=== PATIENT | female | born 1970 | race Caucasian/White ===

== ENCOUNTER 2020-03-18 01:29 | Emergency (ER) | payer BC ==
[2020-03-18] MEDS ORDERED: NORMAL SALINE 1000 ML 1,000 ML IV ONE (04:25)
[2020-03-18] MEDS ORDERED: KETOROLAC TROMETHAMINE INJ/PF 30 MG/1 ML SDV IV ONE (04:26)
[2020-03-18] MEDS ORDERED: HYDROMORPHONE HCL INJ/PF 2 MG/ML AMPULE IV ONE (04:26)
--- NOTE | 2020-03-18 04:32 | ER Document Report ---
ED GI/ - General Chief Complaint: Flank Pain Stated Complaint: SEVERE BACK PAIN, ABDOMINAL PAIN Time Seen by Provider: 03/18/20 04:10 Notes: Patient is a 50-year-old female who comes emergency department for chief complaint of left flank pain radiating into her abdomen, urinary discomfort. She states symptoms started suddenly just prior to arrival and woke her up from her sleep. She states she took Flomax and 5 mg of Percocet, symptoms did not improve whatsoever so she came in for evaluation. She states that she passes kidney stones very frequently, she states normally she just manages them at home, she states she has always passed them and has never required a stent or stone retrieval. She states she follows with [facility]. She denies vomiting, fever, hematuria. She denies any other complaints. - Related Data Allergies/Adverse Reactions: acetaminophen [From Vicodin] Allergy (Verified 03/18/20 02:14) alcohol Allergy (Verified 03/18/20 02:14) ceftriaxone [From Rocephin] Allergy (Verified 03/18/20 02:14) hydrocodone [From Vicodin] Allergy (Verified 03/18/20 02:14) morphine Allergy (Verified 03/18/20 02:14) Past Medical History - General Information source: Patient - Social History Smoking Status: Current Every Day Smoker Frequency of alcohol use: None Drug Abuse: None Lives with: Family Family History: Reviewed & Not Pertinent Renal/ Medical History: Reports: Hx Kidney Stones Musculoskeletal Medical History: Reports Hx Fibromyalgia - Immunizations Immunizations up to date: Yes Hx Diphtheria, Pertussis, Tetanus Vaccination: Yes Review of Systems - Review of Systems Constitutional: No symptoms reported EENT: No symptoms reported Cardiovascular: No symptoms reported Respiratory: No symptoms reported Gastrointestinal: No symptoms reported, See HPI Genitourinary: See HPI Female Genitourinary: No symptoms reported Musculoskeletal: No symptoms reported Skin: No symptoms reported Hematologic/Lymphatic: No symptoms reported Neurological/Psychological: No symptoms reported Physical Exam - Vital signs Vitals: Temp Pulse Resp BP Pulse Ox 97.5 F 74 22 H 149/83 H 98 03/18/20 01:38 03/18/20 01:38 03/18/20 01:38 03/18/20 01:38 03/18/20 01:38 - Notes Notes: GENERAL: Alert, interacts well. No acute distress. HEAD: Normocephalic, atraumatic. EYES: Pupils equal, round, and reactive to light. Extraocular movements intact. ENT: Oral mucosa moist, tongue midline. Oropharynx unremarkable. Airway patent. NECK: Full range of motion. Supple. Trachea midline. No lymphadenopathy. LUNGS: Clear to auscultation bilaterally, no wheezes, rales, or rhonchi. No respiratory distress. Non-tender chest wall. HEART: Regular rate and rhythm. No murmur ABDOMEN: Soft, non-tender. Non-distended. EXTREMITIES: Moves all 4 extremities spontaneously. No edema, normal radial and dorsalis pedis pulses bilaterally. No cyanosis. BACK: no cervical, thoracic, lumbar midline tenderness. No saddle anesthesia, normal distal neurovascular exam. Moves all extremities in full range of motion. NEUROLOGICAL: Alert and oriented x3. Normal speech. Cranial nerves II through XII grossly intact. Strength 5/5 in all extremities. PSYCH: Normal affect, normal mood. SKIN: Warm, dry, normal turgor. No rashes or lesions noted. Course - Re-evaluation Re-evalutation: Patient is calm, well-appearing, talkative, alert, no signs of distress. Terrie ma based on her reported symptoms and history I do suspect passing ureterolithiasis. Soft benign abdomen, unremarkable vital signs, no fever. CBC shows leukocytosis with elevation of neutrophils but no bandemia, unremarkable otherwise. Chemistry nonspecific. Urine shows some contamination, some hematuria, a few white blood cells, nonspecific. This was cultured. I did discuss with patient because of the nonspecific urine and possible CAT scan but on reevaluation symptoms have completely resolved with medications and patient is requesting to leave instead. I have a low suspicion of infection based on the urine and the small amount of time since symptom onset. Patient will be provided with medications to assist her in addition to her medications at home, she states she has good urology follow-up with [facility] Mccrack[facility], I discussed return precautions, patient states appreciation and agreement. Stable and well- appearing at time of discharge. - Vital Signs Vital signs: Temp Pulse Resp BP Pulse Ox 97.5 F 77 20 137/80 H 97 03/18/20 06:32 03/18/20 06:32 03/18/20 06:32 03/18/20 06:32 03/18/20 06:32 - Laboratory Result Diagrams: 03/18/20 04:17 03/18/20 04:17 Laboratory results interpreted by me: 03/18/20 03/18/20 04:17 04:17 WBC 15.4 H RDW 14.1 H Absolute Neuts (auto) 12.1 H Seg Neutrophils % 78.4 H Urine Blood MODERATE H Urine Bilirubin SMALL H Ur Leukocyte Esterase TRACE H Discharge - Discharge Clinical Impression: Left flank pain, Urinary symptom or sign Condition: Stable Disposition: HOME, SELF-CARE Additional Instructions: Your urine does show some blood and calcium oxalate crystals. Based on this and your evaluation I suspect your passing a kidney stone. Drink plenty of fluids, continue your Flomax, take Percocet if needed for pain, take Phenergan if needed for nausea, you can take Toradol for supplemental pain control if needed (take with food and only if needed). Follow-up closely with urology for additional management. Return for any concerning symptoms including severe worsening pain, fever/chills, uncontrolled vomiting, or any other concerning symptoms. Prescriptions: Ketorolac Tromethamine [Toradol 10 mg Tablet] 10 mg PO Q8HP PRN #12 tablet PRN Reason: Promethazine HCl [Phenergan 25 mg Tablet] 25 mg PO Q6H PRN #20 tablet PRN Reason:
[2020-03-18 04:50] LABS: ABSOLUTE EOSINOPHILS # (AUTO) 0.2 10^3/uL (0.0-0.6); ABSOLUTE LYMPHOCYTES (AUTO) 2.2 10^3/uL (0.5-4.7); ABSOLUTE MONOCYTES (AUTO) 0.9 10^3/uL (0.1-1.4); ABSOLUTE NEUT (AUTO) 12.1 10^3/uL (1.7-8.2); BASOPHILS % (AUTO) 0.3 % (0-2); EOSINOPHILS % (AUTO) 1.4 % (0-6); HEMATOCRIT 42.5 % (36.0-47.0); HEMOGLOBIN 14.2 g/dL (12.0-15.5); LYMPHOCYTES % (AUTO) 14.2 % (13-45); MEAN CORPUSCULAR HEMOGLOBIN 29.7 pg (27.0-33.4); MEAN CORPUSCULAR HGB CONC 33.3 g/dL (32.0-36.0); MEAN CORPUSCULAR VOLUME 89 fl (80-97); MONOCYTES % (AUTO) 5.7 % (3-13); PLATELET COUNT 357 10^3/uL (150-450); RED BLOOD COUNT 4.77 10^6/uL (3.72-5.28); RED CELL DISTRIBUTION WIDTH 14.1 % (11.5-14.0); SEGMENTED NEUTROPHILS % (AUTO) 78.4 % (42-78); TOTAL CELLS COUNTED % (AUTO) 100 %; WHITE BLOOD COUNT 15.4 10^3/uL (4.0-10.5)
[2020-03-18] MEDS ORDERED: ONDANSETRON HCL INJ/PF 4 MG/2 ML SDV IV ONE (05:01)
[2020-03-18 05:04] LABS: ALBUMIN 4.1 g/dL (3.5-5.0); ALKALINE PHOSPHATASE 116 U/L (38-126); ANION GAP 10 (5-19); ASPARTATE AMINO TRANSFERASE 26 U/L (14-36); BILIRUBIN,DIRECT 0.2 mg/dL (0.0-0.4); BILIRUBIN,TOTAL 0.5 mg/dL (0.2-1.3); BLOOD UREA NITROGEN 17 mg/dL (7-20); CALCIUM 9.9 mg/dL (8.4-10.2); CARBON DIOXIDE 23 mmol/L (22-30); CHLORIDE 106 mmol/L (98-107); GLUCOSE 109 mg/dL (75-110); POTASSIUM 4.3 mmol/L (3.6-5.0); TOTAL PROTEIN 7.4 g/dL (6.3-8.2)
[2020-03-18 05:24] LABS: APPEARANCE,URINE CLOUDY; BILIRUBIN,URINE SMALL (NEGATIVE); CALCIUM OXALATE CRYSTALS,URINE TOO NUMEROUS TO CNT /HPF; COLOR,URINE YELLOW; GLUCOSE, URINE NEGATIVE (NEGATIVE); KETONES,URINE NEGATIVE (NEGATIVE); LEUKOCYTE ESTERASE,URINE TRACE (NEGATIVE); NITRITE,URINE NEGATIVE (NEGATIVE); PROTEIN,URINE NEGATIVE (NEGATIVE); URINE SPECIFIC GRAVITY 1.029; UROBILINOGEN,URINE NEGATIVE mg/dL (<2.0)
[2020-03-18 06:33] VITALS: BP 137/80
== END 2020-03-18 06:33 | disposition home or self-care (01) ==
LOC: ER 01:29
DX: R10.9 Unspecified abdominal pain (principal); M54.9 Dorsalgia, unspecified; R39.89 Other symptoms and signs involving the genitourinary system; R30.0 Dysuria; F17.200 Nicotine dependence, unspecified, uncomplicated; Z88.6 Allergy status to analgesic agent; Z87.442 Personal history of urinary calculi
CPT/HCPCS: 99284; 96361; 96374; 96375; 36415; 87086; 83690; 84703; 85025; 87088; 80053; 81001; J1885; J1170; J2405; J7030